=== PATIENT | male | born 1985 | race Hispanic/Latino ===

== ENCOUNTER 2017-04-16 22:10 | Emergency (ER) | payer MEDICAID ==
[2017-04-16] MEDS ORDERED: Albuterol-Ipratrop 3 mg / 0.5 (3 ml) UD ONE (22:29)
[2017-04-16] MEDS ORDERED: Albuterol-Ipratrop 3 mg / 0.5 (3 ml) UD INH STA (22:30)
[2017-04-16] MEDS ORDERED: MethylPREDNISolone 40 mg Vial IVP STA (22:31)
--- NOTE | 2017-04-16 22:39 | C.PDOC ---
History Of Present Illness Patient is a 31 year old male with a PMHx of asthma, who presents to the ER with a complaint of SOB. Patient denies chest pain or fever. Chief Complaint (Nursing): Respiratory Distress History Per: Patient History/Exam Limitations: no limitations Onset/Duration Of Symptoms: Hrs Current Symptoms Are (Timing): Still Present Initiating Event: Other (Not known) Quality: Other (No pain) Current Respiratory Medications: Albuterol Associated Symptoms: denies: Fever, Chest Pain Recent travel outside of the [place]: No Past Medical History Reviewed: Historical Data, Nursing Documentation, Vital Signs Vital Signs: Last Vital Signs Temp 98 F 04/16/17 22:19 Pulse 90 04/16/17 22:19 Resp 23 04/16/17 22:39 BP 119/85 04/16/17 22:19 Pulse Ox 96 04/16/17 22:44 - Medical History PMH: Asthma Surgical History: No Surg Hx Family History: States: Unknown Family Hx - Social History Hx Alcohol Use: No Hx Substance Use: No - Immunization History Hx Tetanus Toxoid Vaccination: Yes Hx Influenza Vaccination: No Hx Pneumococcal Vaccination: No Review Of Systems Constitutional: Negative for: Fever Cardiovascular: Negative for: Chest Pain Respiratory: Positive for: Shortness of Breath Physical Exam - Physical Exam Appears: Non-toxic, Other (Moderately dyspenic) Skin: Normal Color, Warm, Dry Head: Atraumatic, Normacephalic Eye(s): bilateral: Normal Inspection, EOMI Oral Mucosa: Moist Chest: Symmetrical, No Tenderness Cardiovascular: Rhythm Regular, No Murmur Respiratory: Decreased Breath Sounds, No Rales, No Rhonchi, Wheezing (Occasional ) Gastrointestinal/Abdominal: Soft, No Tenderness Neurological/Psych: Oriented x3, Normal Speech, Normal Cognition ED Course And Treatment O2 Sat by Pulse Oximetry: 96 (Room air) Pulse Ox Interpretation: Normal Progress Note: EKG ordered. Nebulizer treatment administered. Disposition Counseled Patient/Family Regarding: Diagnosis - Disposition Referrals: [facility] [Outside] Disposition: HOME/ ROUTINE Disposition Time: 23:48 Condition: IMPROVED Prescriptions: Albuterol/Ipratropium [Duoneb 3 MG/3 Ml-0.5 MG/3 Ml 3 Ml] 3 ml IH Q6 #20 neb Methylprednisolone [Medrol Dose Pack (21 tabs)] 4 mg PO DAILY #21 mg Instructions: Asthma (DC), Bronchospasm (DC) - POA Present On Arrival: None - Clinical Impression Clinical Impression: Asthma, Bronchospasm - Scribe Statement The provider has reviewed the documentation as recorded by the Scribe Provider Attestation: Albert Potter All medical record entries made by the Scribe were at my direction and personally dictated by me. I have reviewed the chart and agree that the record accurately reflects my personal performance of the history, physical exam, medical decision making, and the department course for this patient. I have also personally directed, reviewed, and agree with the discharge instructions and disposition.
[2017-04-17 00:05] VITALS: BP 110/72; PULSE 74; RESP 17; TEMP 97.8; O2SAT 98
== END 2017-04-17 00:05 | disposition home or self-care (01) ==
LOC: C.ER 22:10
DX: J45.909 Unspecified asthma, uncomplicated (principal)
CPT/HCPCS: 94640; 96374; 99284; J2920